=== PATIENT | female | born 1970 | race African-American/Black ===

== ENCOUNTER 2018-01-13 17:42 | Emergency (ER) | payer OTHER ==
[~2018-01-13] VITALS: Ht 157.5 cm; Wt 95.3 kg
[2018-01-13 18:09] VITALS: BP 137/88
[2018-01-13] MEDS ORDERED: IBUPROFEN 400 MG TABLET. PO ONE (18:45)
--- NOTE | 2018-01-13 19:18 | RAD ---
3 views several spine and 3 views thoracic spine dated 01/13/2018. No comparison available. CLINICAL INDICATION: Left-sided pain. FINDINGS: 3 views cervical spine show normal sagittal alignment. Vertebral body heights are maintained. No prevertebral soft tissue swelling. Posterior elements are intact. There are mild endplate hypertrophic changes with prominent anterior osteophytes at C5, C6 and C7. Mild multilevel uncovertebral spurring and facet arthropathy. There is mild disc space narrowing at C5-C6. C1-C2 articulation unremarkable. 3 views of thoracic spine show normal sagittal alignment. Vertebral body heights are maintained. Mild endplate hypertrophic changes throughout. No paraspinous soft tissue abnormality. IMPRESSION: 1. No acute radiographic abnormality. 2. Mild multilevel spondylosis. Electronically signed by: Tay Fox MD (01/13/2018 7:15 PM) [facility]
[2018-01-13] MEDS ORDERED: ORPH100T PO (19:31)
[2018-01-13] MEDS ORDERED: HYDR-3164 PO (19:31)
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
== END 2018-01-13 19:35 | disposition home or self-care (01) ==
LOC: ER 17:42
DX: M54.2 Cervicalgia (principal); M54.6 Pain in thoracic spine; G89.11 Acute pain due to trauma; V49.49XA Driver injured in collision with other motor vehicles in traffic accident, initial encounter; Y92.488 Other paved roadways as the place of occurrence of the external cause; Y93.89 Activity, other specified; Y99.8 Other external cause status
CPT/HCPCS: 72040; 72072; 99284